=== PATIENT | male | born 1965 | race African-American/Black ===

== ENCOUNTER 2018-01-01 22:00 | Inpatient (IN) | payer OTHER ==
[~2018-01-01] VITALS: Ht 188 cm; Wt 77.7 kg
[2018-01-01 22:33] LABS: BASOPHILS % (AUTO) 0.6 % (0.0-2.0); EOSINOPHILS % (AUTO) 1.4 % (0.0-3.0); HEMATOCRIT 34.4 % (42.0-52.0); HEMOGLOBIN 11.3 G/DL (14.2-18.0); LYMPHOCYTES % (AUTO) 18.7 % (20.0-45.0); MEAN CORPUSCULAR VOLUME 84 FL (80-99); MONOCYTES % (AUTO) 5.2 % (1.0-10.0); NEUTROPHILS % (AUTO) 74.1 % (45.0-75.0); PLATELET COUNT 289 K/UL (150-450); RED BLOOD COUNT 4.08 M/UL (4.70-6.10); RED CELL DISTRIBUTION WIDTH 14.9 % (11.6-14.8); WHITE BLOOD COUNT 5.6 K/UL (4.8-10.8)
[2018-01-01 22:46] LABS: ANION GAP 10 mmol/L (5-15); BLOOD UREA NITROGEN 31 mg/dL (7-18); CALCIUM 9.8 MG/DL (8.5-10.1); CARBON DIOXIDE 22 MMOL/L (21-32); CHLORIDE 98 MMOL/L (98-107); CREATININE 1.8 MG/DL (0.55-1.30); POTASSIUM 4.5 MMOL/L (3.5-5.1); SODIUM 130 MMOL/L (136-145)
[2018-01-01 22:56] LABS: ALANINE AMINOTRANSFERASE 20 U/L (12-78); ALBUMIN 3.3 G/DL (3.4-5.0); ALBUMIN/GLOBULIN RATIO 0.5 (1.0-2.7); ALKALINE PHOSPHATASE 133 U/L (46-116); ASPARTATE AMINO TRANSFERASE 13 U/L (15-37); BILIRUBIN,TOTAL 0.1 MG/DL (0.2-1.0); CREATINE KINASE 71 U/L (26-308)
[2018-01-02 00:10] LABS: APPEARANCE,URINE CLEAR; BILIRUBIN, URINE NEGATIVE (NEGATIVE); GLUCOSE, URINE (UA) NEGATIVE (NEGATIVE); KETONES,URINE NEGATIVE (NEGATIVE); LEUKOCYTE ESTERASE ,URINE 1+ (NEGATIVE); NITRITE,URINE NEGATIVE (NEGATIVE); PH,URINE 6 (4.5-8.0); PROTEIN,URINE 1+ (NEGATIVE); UROBILINOGEN,URINE NORMAL MG/DL (0.0-1.0)
[2018-01-02 00:32] LABS: COLOR,URINE YELLOW
--- NOTE | 2018-01-02 01:01 | Emergency Room Report ---
History of Present Illness General Chief Complaint: Syncope Source: Patient, Medical Record, EMS Present Illness HPI This is an unfortunate 52-year-old male with a history of schizophrenia. Also history of nontraumatic subdural hematoma. He is bed bound in a fdc. At baseline he is able to communicate. He presents with chief complaint of syncope. He told nursing staff that he had to use the restroom. This did him up and he had a syncopal episode. Per EMS his blood pressure was low. Patient has no trauma. Complaining of feeling weak. Denies any pain. No nausea no vomiting. No fever or chills. No other complaint. No chest pain. Allergies: Coded Allergies: No Known Allergies (Unverified , 01/01/18) Patient History Past Medical History: see triage record, old chart reviewed, HTN, CVA/TIA Past Surgical History: other Pertinent Family History: none Social History: Denies: smoking Immunizations: UTD Reviewed Nursing Documentation: PMH: Agreed; PSxH: Agreed Nursing Documentation-PMH Past Medical History: No History, Except For Hx Hypertension: Yes Hx Gastrointestinal Problems: Yes - G-tube History Of Psychiatric Problem: Yes - schizophrenia Hx Neurological Problems: Yes - subdural hemorrhage,anxiety, Hx Seizures: Yes Review of Systems Constitutional: Reports: weakness Eye: Denies: eye pain, blurred vision ENT: Denies: ear pain, nose congestion, throat swelling Respiratory: Denies: cough, shortness of breath Cardiovascular: Denies: chest pain, palpitations Gastrointestinal: Denies: abdominal pain, diarrhea, nausea, vomiting Musculoskeletal: Denies: back pain, joint pain Skin: Denies: rash Neurological: Denies: headache, numbness Endocrine: Denies: increased thirst, increased urine Hematologic/Lymphatic: Denies: easy bruising All Other Systems: negative except mentioned in HPI Physical Exam Vital Signs Date Time Temp Pulse Resp B/P (MAP) Pulse Ox O2 Delivery O2 Flow Rate FiO2 01/01/18 21:51 98.7 92 20 80/50 96 Room Air 98.8 vitals with hypotension Sp02 EP Interpretation: reviewed, normal General Appearance: well appearing, alert, thin, Chronically Ill Head: normocephalic, atraumatic Eyes: bilateral eye PERRL, bilateral eye EOMI ENT: hearing grossly normal, normal pharynx, dry mucus membranes Neck: full range of motion, supple, no meningismus Respiratory: chest non-tender, lungs clear, normal breath sounds Cardiovascular #1: regular rate, rhythm, no murmur Gastrointestinal: normal bowel sounds, non tender, no mass, no organomegaly, no bruit, non-distended Musculoskeletal: back normal, normal range of motion Neurologic: alert Psychiatric: mood/affect normal Skin: warm/dry Medical Decision Making Diagnostic Impression: Primary Impression: Syncope Qualified Codes: R55 - Syncope and collapse Additional Impressions: Dehydration CLAUDIA (acute kidney injury) Anemia Qualified Codes: D64.9 - Anemia, unspecified ER Course Patient presents with syncope secondary to hypotension. He show evidence of acute kidney injury. Creatinine is 1.8. Recent labs from a week ago still creatinine of 1.16. Blood pressure improved after IV fluid. No evidence of infection. Troponin negative. We'll admit for IV hydration and further monitoring. I will contact Dr. Thompson for admission. Lab Results Impression last with elevated creatinine EKG Diagnostic Results Rate: normal Rhythm: NSR ST Segments: no acute changes Rhythm Strip Diag. Results Rhythm Strip Time: 01:00 EP Interpretation: yes Chest X-Ray Diagnostic Results Chest X-Ray Diagnostic Results : Chest X-Ray Ordered: Yes # of Views/Limited/Complete: 1 View Indication: Chest Pain EP Interpretation: Yes Interpretation: no consolidation, no effusion, no pneumothorax, no acute cardiopulmonary disease Impression: No acute disease Electronically Signed by: Hira Solano MD Last Vital Signs Date Time Temp Pulse Resp B/P (MAP) Pulse Ox O2 Delivery O2 Flow Rate FiO2 18 21:51 98.7 92 20 80/50 96 Room Air 98.8 Status: improved Disposition: ADMITTED INPATIENT Condition: Serious Referrals: Melissa Thompson MD (PCP) HIRA SOLANO M.D. Jan 02, 2018 01:01
[2018-01-02] MEDS ORDERED: MILK OF MA2400 MG/10 ORAL (02:01)
[2018-01-02] MEDS ORDERED: METOPROLOL TART50 M1 ORAL (02:01)
[2018-01-02] MEDS ORDERED: RISPERDAL2 MG ORAL (02:01)
[2018-01-02] MEDS ORDERED: DEPAKENE250 MG/5 M PO (02:01)
[2018-01-02] MEDS ORDERED: DULCOLAX10 MG RC (02:01)
[2018-01-02] MEDS ORDERED: ACETAMINOPHEN325 M1 ORAL (02:01)
[2018-01-02] MEDS ORDERED: FAMOTIDINE10 MG ORAL (02:01)
[2018-01-02] MEDS ORDERED: VITAMIN C500 M1 ORAL (02:01)
[2018-01-02] MEDS ORDERED: TRILEPTAL600 MG PO (02:01)
[2018-01-02] MEDS ORDERED: ATIVAN1 MG ORAL (02:01)
[2018-01-02] MEDS ORDERED: DOCUSATE SODIU100 MG ORAL (02:01)
[2018-01-02] MEDS ORDERED: LISINOPRIL10 MG ORAL (02:01)
[2018-01-02] MEDS ORDERED: VITAMIN D1000 UNI1 ORAL (02:01)
[2018-01-02] MEDS ORDERED: NORVASC10 MG ORAL (02:01)
[2018-01-02] MEDS ORDERED: BENADRYL25 MG ORAL (02:01)
[2018-01-02] MEDS ORDERED: FLEET ENEMA133 ML RECTAL (02:01)
[2018-01-02 02:22] VITALS: BP 101/64
[2018-01-02 04:00] VITALS: BP 106/75
[2018-01-02 08:00] VITALS: BP 117/60
[2018-01-02] MEDS: Pantoprazole Inj IVP SCH (09:27)
[2018-01-02 10:11] LABS: BASOPHILS % (AUTO) 0.3 % (0.0-2.0); EOSINOPHILS % (AUTO) 1.9 % (0.0-3.0); HEMATOCRIT 30.4 % (42.0-52.0); HEMOGLOBIN 9.6 G/DL (14.2-18.0); LYMPHOCYTES % (AUTO) 23.9 % (20.0-45.0); MEAN CORPUSCULAR VOLUME 86 FL (80-99); NEUTROPHILS % (AUTO) 62.9 % (45.0-75.0); PLATELET COUNT 246 K/UL (150-450); RED BLOOD COUNT 3.55 M/UL (4.70-6.10); WHITE BLOOD COUNT 3.6 K/UL (4.8-10.8)
[2018-01-02 10:43] LABS: ALANINE AMINOTRANSFERASE 14 U/L (12-78); ALBUMIN 2.6 G/DL (3.4-5.0); ALBUMIN/GLOBULIN RATIO 0.5 (1.0-2.7); ALKALINE PHOSPHATASE 106 U/L (46-116); ANION GAP 3 mmol/L (5-15); ASPARTATE AMINO TRANSFERASE 12 U/L (15-37); BILIRUBIN,TOTAL 0.2 MG/DL (0.2-1.0); BLOOD UREA NITROGEN 23 mg/dL (7-18); CALCIUM 9.2 MG/DL (8.5-10.1); CARBON DIOXIDE 25 MMOL/L (21-32); CHLORIDE 105 MMOL/L (98-107); CREATININE 0.9 MG/DL (0.55-1.30); POTASSIUM 4.2 MMOL/L (3.5-5.1); SODIUM 133 MMOL/L (136-145)
--- NOTE | 2018-01-02 11:36 | Diagnostic Imaging Report ---
Indication: Dyspnea Comparison: None A single view chest radiograph was obtained. Findings: There is a plate like atelectasis at the lung bases. A small left pleural effusion is not excluded. Lung volumes are low bilaterally. Heart size is normal. IMPRESSION: Basilar atelectasis. Tiny left pleural effusion is possible
[2018-01-02 12:00] VITALS: BP 90/59
--- NOTE | 2018-01-02 12:30 | Consultation ---
History of Present Illness General Date patient seen: Jan 02, 2018 Chief Complaint: Syncope Present Illness HPI 52-year-old male with a history of schizophrenia, subdural hematoma, bed bound in a fci brought in by paramedics with CC of syncope. Per EMS his blood pressure was low. Patient has no trauma. Complaining of feeling weak. Denies any pain. No nausea no vomiting. No fever or chills. No other complaint. No chest pain. Allergies: Coded Allergies: No Known Allergies (Unverified , 01/01/18) Medication History Scheduled Amlodipine Besylate (Norvasc), 10 MG ORAL DAILY, (Reported) Ascorbic Acid* (Vitamin C*), 500 MG ORAL DAILY, (Reported) Cholecalciferol (Vitamin D3)* (Vitamin D*), 5,000 UNITS ORAL DAILY, (Reported) Docusate Sodium* (Docusate Sodium*), 100 MG ORAL DAILY, (Reported) Famotidine (Famotidine), 20 MG ORAL EVERY 12 HOURS, (Reported) Lisinopril* (Lisinopril*), 10 MG ORAL DAILY, (Reported) Metoprolol Tartrate* (Metoprolol Tartrate*), 50 MG ORAL EVERY 12 HOURS, ( Reported) Oxcarbazepine* (Trileptal*), 600 MG PO EVERY 12 HOURS, (Reported) Risperidone* (Risperdal*), 2 MG ORAL BID, (Reported) Valproate Sodium (Depakene), 250 MG PO THREE TIMES A DAY, (Reported) Scheduled PRN Acetaminophen* (Acetaminophen 325MG Tablet*), 650 MG ORAL Q4H PRN for Fever/ Headache/Mild Pain, (Reported) Bisacodyl (Dulcolax), 10 MG RC DAILY PRN for Constipation, (Reported) Diphenhydramine Hcl* (Benadryl*), 50 MG ORAL Q6H PRN for Itching, (Reported) Lorazepam* (Ativan*), 1 MG ORAL EVERY 12 HOURS PRN for For Anxiety, (Reported) Magnesium Hydroxide* (Milk Of Magnesia*), 30 ML ORAL DAILY PRN for Constipation, (Reported) Na Phos,M-B/Na Phos,Di-Ba* (Fleet Enema*), 133 ML RECTAL DAILY PRN for Constipation, (Reported) Patient History Healthcare decision maker Resuscitation status Full Code Advanced Directive on File Past Medical/Surgical History Past Medical/Surgical History: (1) Schizo-affective schizophrenia (2) Subdural hematoma Review of Systems All Other Systems: negative except mentioned in HPI Physical Exam General Appearance: WD/WN, no apparent distress Lines, tubes and drains: peripheral HEENT: normocephalic, atraumatic Neck: non-tender, normal alignment Respiratory/Chest: chest wall non-tender, lungs clear Breasts: no masses Cardiovascular/Chest: normal peripheral pulses Abdomen: normal bowel sounds Genitourinary/Rectal: normal genital exam Last 24 Hour Vital Signs Date Time Temp Pulse Resp B/P (MAP) Pulse Ox O2 Delivery O2 Flow Rate FiO2 01/02/18 09:00 Nasal Cannula 2.0 01/02/18 08:00 97.5 71 18 117/60 (79) 98 97.5 01/02/18 08:00 75 01/02/18 04:32 75 01/02/18 04:00 97.5 89 20 106/75 (85) 92 97.5 01/02/18 03:59 98.8 20 101/64 96 Nasal Cannula 2.0 98.8 01/02/18 03:19 Nasal Cannula 2.0 01/02/18 02:22 98.8 20 101/64 96 Room Air 98.8 01/01/18 21:51 98.7 92 20 80/50 96 Room Air 98.8 Intake and Output 01/01/18 01/02/18 19:00 07:00 Intake Total 0 ml Output Total 750 ml Balance -750 ml Intake Oral 0 ml Output Urine Total 750 ml Laboratory Tests Test 01/01/18 22:15 01/01/18 23:35 01/02/18 09:35 White Blood Count 5.6 K/UL (4.8-10.8) 3.6 K/UL (4.8-10.8) L Red Blood Count 4.08 M/UL (4.70-6.10) L 3.55 M/UL (4.70-6.10) L Hemoglobin 11.3 G/DL (14.2-18.0) L 9.6 G/DL (14.2-18.0) L Hematocrit 34.4 % (42.0-52.0) L 30.4 % (42.0-52.0) L Mean Corpuscular Volume 84 FL (80-99) 86 FL (80-99) Mean Corpuscular Hemoglobin 27.7 PG (27.0-31.0) 27.1 PG (27.0-31.0) Mean Corpuscular Hemoglobin Concent 32.8 G/DL (32.0-36.0) 31.7 G/DL (32.0-36.0) L Red Cell Distribution Width 14.9 % (11.6-14.8) H 15.0 % (11.6-14.8) H Platelet Count 289 K/UL (150-450) 246 K/UL (150-450) Mean Platelet Volume 6.5 FL (6.5-10.1) 6.4 FL (6.5-10.1) L Neutrophils (%) (Auto) 74.1 % (45.0-75.0) 62.9 % (45.0-75.0) Lymphocytes (%) (Auto) 18.7 % (20.0-45.0) L 23.9 % (20.0-45.0) Monocytes (%) (Auto) 5.2 % (1.0-10.0) 11.0 % (1.0-10.0) H Eosinophils (%) (Auto) 1.4 % (0.0-3.0) 1.9 % (0.0-3.0) Basophils (%) (Auto) 0.6 % (0.0-2.0) 0.3 % (0.0-2.0) Sodium Level 130 MMOL/L (136-145) L 133 MMOL/L (136-145) L Potassium Level 4.5 MMOL/L (3.5-5.1) 4.2 MMOL/L (3.5-5.1) Chloride Level 98 MMOL/L (98-107) 105 MMOL/L (98-107) Carbon Dioxide Level 22 MMOL/L (21-32) 25 MMOL/L (21-32) Anion Gap 10 mmol/L (5-15) 3 mmol/L (5-15) L Blood Urea Nitrogen 31 mg/dL (7-18) H 23 mg/dL (7-18) H Creatinine 1.8 MG/DL (0.55-1.30) H 0.9 MG/DL (0.55-1.30) Estimat Glomerular Filtration Rate 39.8 mL/min (>60) > 60 mL/min (>60) Glucose Level 131 MG/DL (74-106) H 96 MG/DL (74-106) Calcium Level 9.8 MG/DL (8.5-10.1) 9.2 MG/DL (8.5-10.1) Total Bilirubin 0.1 MG/DL (0.2-1.0) L 0.2 MG/DL (0.2-1.0) Aspartate Amino Transf (AST/SGOT) 13 U/L (15-37) L 12 U/L (15-37) L Alanine Aminotransferase (ALT/SGPT) 20 U/L (12-78) 14 U/L (12-78) Alkaline Phosphatase 133 U/L (46-116) H 106 U/L (46-116) Total Creatine Kinase 71 U/L (26-308) Creatine Kinase MB 1.0 NG/ML (0.0-3.6) Creatine Kinase MB Relative Index 1.4 Troponin I 0.016 ng/mL (0.000-0.056) Total Protein 9.8 G/DL (6.4-8.2) H 7.9 G/DL (6.4-8.2) Albumin 3.3 G/DL (3.4-5.0) L 2.6 G/DL (3.4-5.0) L Globulin 6.5 g/dL 5.3 g/dL Albumin/Globulin Ratio 0.5 (1.0-2.7) L 0.5 (1.0-2.7) L Urine Color Yellow Urine Appearance Clear Urine pH 6 (4.5-8.0) Urine Specific Cades 1.015 (1.005-1.035) Urine Protein 1+ (NEGATIVE) H Urine Glucose (UA) Negative (NEGATIVE) Urine Ketones Negative (NEGATIVE) Urine Occult Blood 1+ (NEGATIVE) H Urine Nitrite Negative (NEGATIVE) Urine Bilirubin Negative (NEGATIVE) Urine Urobilinogen Normal MG/DL (0.0-1.0) Urine Leukocyte Esterase 1+ (NEGATIVE) H Urine RBC 2-4 /HPF (0 - 0) H Urine WBC 2-4 /HPF (0 - 0) Urine Squamous Epithelial Cells Few /LPF (NONE/OCC) Urine Calcium Oxalate Crystals Few /LPF (NONE) Urine Bacteria Few /HPF (NONE) Urine Hyaline Casts 5-10 /LPF (NONE) H Vitamin B6 Level Pending Thyroid Stimulating Hormone (TSH) 0.990 uiU/mL (0.358-3.740) Height (Feet): 6 Height (Inches): 2.00 Weight (Pounds): 184 Medications Current Medications Medications (Trade) Dose Ordered Sig/Martir Route PRN Reason Start Time Stop Time Status Last Admin Dose Admin Ondansetron HCl (Zofran) 4 mg Q6H PRN IVP Nausea & Vomiting 01/02/18 06:15 02/01/18 06:14 Pantoprazole (Protonix) 40 mg DAILY IVP 01/02/18 09:00 02/01/18 08:59 01/02/18 09:27 Sodium Chloride 1,000 ml @ 100 mls/hr Q10H IV 01/02/18 07:00 02/01/18 06:59 01/02/18 06:42 Assessment/Plan Problem List: (1) Pleural effusion ICD Codes: J90 - Pleural effusion, not elsewhere classified SNOMED: 11227488 (2) Schizo-affective schizophrenia ICD Codes: F25.0 - Schizoaffective disorder, bipolar type SNOMED: 529436582 (3) Syncope ICD Codes: R55 - Syncope and collapse SNOMED: 544373576 Qualifiers: Qualified Codes: R55 - Syncope and collapse Assessment/Plan pleural effusion is very small no further work up swallow study neuro evaluation respiratory treatment titrate fio2 to sat of 92% dvt prophylaxis Caroline Abreu MD Jan 02, 2018 12:29
--- NOTE | 2018-01-02 12:34 | Diagnostic Imaging Report ---
Indication: Dyspnea Comparison: 01/01/2018 A single view chest radiograph was obtained. Findings: Basal atelectasis demonstrated. There may be a tiny left pleural effusion. Lung volumes are low. Heart size is stable. IMPRESSION: No change compared to the prior exam
[2018-01-02 16:10] VITALS: BP 103/64
--- NOTE | 2018-01-02 16:49 | Diagnostic Imaging Report ---
Indication:Abdominal pain Technique: Grayscale and duplex Doppler imaging of the abdomen performed. Comparison: None Findings: The liver, demonstrated part of the pancreas, gallbladder, aorta and IVC, both kidneys, spleen appear unremarkable. There is no biliary ductal dilatation identified. Doppler evaluation of the main portal vein shows patency. There is no ascites. No hydronephrosis seen. CBD is 5.3 mm. There is a 1.5 cm cyst in the lower pole the right kidney. Impression: No acute findings. Right renal cyst
[2018-01-02 20:00] VITALS: BP 107/62
[2018-01-02 20:16] LABS: APPEARANCE,URINE CLEAR; BILIRUBIN, URINE NEGATIVE (NEGATIVE); COLOR,URINE PALE YELLOW; GLUCOSE, URINE (UA) NEGATIVE (NEGATIVE); KETONES,URINE NEGATIVE (NEGATIVE); LEUKOCYTE ESTERASE ,URINE NEGATIVE (NEGATIVE); NITRITE,URINE NEGATIVE (NEGATIVE); PH,URINE 6 (4.5-8.0); PROTEIN,URINE NEGATIVE (NEGATIVE); UROBILINOGEN,URINE NORMAL MG/DL (0.0-1.0)
[2018-01-03] VITALS: BP 106/59
[2018-01-03] MEDS ORDERED: LOVENOX10 M2 SUBQ (03:40)
[2018-01-03 04:00] VITALS: BP 106/76
--- NOTE | 2018-01-03 04:00 | History and Physical Report ---
DATE OF ADMISSION: 01/02/2018 REASON FOR ADMISSION: This is the first admission to [facility] of this 52-year-old patient because of sudden loss of consciousness. HISTORY OF PRESENT ILLNESS: The patient is a resident of an extended care facility. He has been in relatively stable condition. Over the last several months, he is known to have several chronic medical syndrome, but has been stable on his current medication. On the day of admission, while walking from the shower, he suddenly collapsed and became pulseless and blood pressure less. He was resuscitated. Code Enforcement Inspector was called and the patient came to [facility] ER where he was found to be dehydrated, hypotensive, in acute renal failure and the patient was admitted. PAST MEDICAL HISTORY: He denied any surgical antecedent. Medically, he is on benazepril 20 mg daily, aspirin 81 mg daily, atorvastatin 10 mg daily, folic acid IU daily. He is on Zyprexa 5 mg daily and Ativan 1 mg q.12 h. p.r.n. FAMILY HISTORY: Noncontributory. SOCIAL HISTORY: He is single. He was born in [place], been on SSI for many years. Prior to the appearance of total disability, he was never employed. Habits, the patient smoked 1 pack a day for the last 30 years. He denied drinking and denied use of illicit drugs. REVIEW OF SYSTEMS: The patient unable to give any information regarding his state of health because of lethargy. PHYSICAL EXAMINATION: VITAL SIGNS: Blood pressure is 107/67, his pulse is 81, respirations are 18, and temperature 98.4 degrees. HEENT: Eyes were normal. Pupils were round, equal, and reactive to light. Sclerae was white. Conjunctiva was pink. Extraocular movements were normal. Temporal arteries were palpable bilaterally. There was no bilateral temporal wasting. Visual cooper to confrontation were normal and neglect sign could not be assessed. ENT, mucous membranes were not dehydrated. Auditory canals were clear and tympanic membranes could not be visualized. Nasal cavity was not congested. Nasal septum was intact. Soft palate was free of ulcerations. Pharynx was clear from exudate or tonsillar hypertrophy. Uvula sarah to phonation. Tongue was moist, midline, and normally papillated. NECK: Supple. There was no goiter. No mass. No lymphadenopathy. There was no rigidity. No bruits. Carotid upstroke was 2+. LUNGS: Clear. HEART: PMI was fifth left intercostal space in midclavicular line. There was normal S1 and normal S2. There was no murmur. No arrhythmia. No S3. No S4. No pericardial rub. ABDOMEN: Soft and nontender without organomegaly. There were no masses palpable. Normal bowel sounds without bruit. There was no guarding. No rebound tenderness. No ascites. No hernia. No CVA tenderness. Liver span was 8 cm, mostly nontender. EXTREMITIES: No cyanosis, no clubbing, and no edema. Extremities were warm. NEUROLOGICAL: Reflexes in biceps, triceps, and brachioradialis were present. Patellar retinaculum were present. Plantar were in flexion. Cranial nerves II through XII were symmetric and equal. Cerebellar function, there was no tremor. No nystagmus. No extrapyramidal rigidity. Sensory exam to pinprick and cotton touch, position, and motor strength could not be assessed because of patient's lethargy. LABORATORY AND DIAGNOSTIC DATA: His hemoglobin is 9.6, hematocrit was 30.4 with MCV of 86, WBC of 3.6, and platelets are 246. His BUN and creatinine is 23 and 0.9 respectively. Sodium is 133, potassium 4.2, chloride 105, CO2 was 25. SGOT and SGPT are normal. Alkaline phosphatase is normal as well. Albumin is 2.6. Total protein is 7.9. His TSH is 0.99. His urinalysis was clean without rbc's or wbc's. His chest x-ray showed left pleural effusion. His are normal. gallbladder dilation. There was no hydronephrosis normal size. IMPRESSION: The patient had left quadrant tenderness. Laboratory tests are normal. Pleural effusion. Pulmonary software sales consultant was called to assist in the management of this case. Repeat laboratory test will be done in the morning. Melissa Thompson M.D. DR: RADHA JOB#: [id number] CC:
[2018-01-03 07:38] LABS: HEMATOCRIT 29.2 % (42.0-52.0); HEMOGLOBIN 9.4 G/DL (14.2-18.0); LYMPHOCYTES % (AUTO) 35.3 % (20.0-45.0); MEAN CORPUSCULAR VOLUME 86 FL (80-99); MONOCYTES % (AUTO) 7.9 % (1.0-10.0); NEUTROPHILS % (AUTO) 53.9 % (45.0-75.0); PLATELET COUNT 254 K/UL (150-450); RED CELL DISTRIBUTION WIDTH 14.3 % (11.6-14.8); WHITE BLOOD COUNT 3.8 K/UL (4.8-10.8)
[2018-01-03 08:00] VITALS: BP 128/70
[2018-01-03] MEDS: Pantoprazole Inj IVP SCH (08:18)
[2018-01-03] MEDS: Xarelto 15mg tab ORAL SCH ×2 (08:22→18:14)
[2018-01-03 08:59] LABS: % IRON SATURATION 32 % (15-50); IRON 44 ug/dL (50-175); TOTAL IRON BINDING CAPACITY 139 ug/dL (250-450)
[2018-01-03 09:01] LABS: ALANINE AMINOTRANSFERASE 16 U/L (12-78); ALBUMIN 2.6 G/DL (3.4-5.0); ALBUMIN/GLOBULIN RATIO 0.5 (1.0-2.7); ALKALINE PHOSPHATASE 108 U/L (46-116); ANION GAP 7 mmol/L (5-15); ASPARTATE AMINO TRANSFERASE 13 U/L (15-37); BILIRUBIN,TOTAL 0.3 MG/DL (0.2-1.0); BLOOD UREA NITROGEN 15 mg/dL (7-18); CALCIUM 9.2 MG/DL (8.5-10.1); CARBON DIOXIDE 24 MMOL/L (21-32); CHLORIDE 102 MMOL/L (98-107); CREATININE 0.8 MG/DL (0.55-1.30); POTASSIUM 3.9 MMOL/L (3.5-5.1); SODIUM 133 MMOL/L (136-145)
[2018-01-03 09:14] LABS: FERRITIN 593 NG/ML (8-388)
[2018-01-03 12:00] VITALS: BP 118/47
--- NOTE | 2018-01-03 12:10 | Pulmonology Progress Note ---
Assessment/Plan Problems: (1) Pleural effusion (2) Schizo-affective schizophrenia (3) Syncope (4) Seizure disorder Assessment/Plan resume seizure meds monitor heart rate and BP check echo Subjective ROS Limited/Unobtainable: No Constitutional: Reports: no symptoms HEENT: Repors: no symptoms Respiratory: Reports: no symptoms Allergies: Coded Allergies: No Known Allergies (Unverified , 01/01/18) Objective Last 24 Hour Vital Signs Date Time Temp Pulse Resp B/P (MAP) Pulse Ox O2 Delivery O2 Flow Rate FiO2 01/03/18 09:00 Nasal Cannula 2.0 01/03/18 08:00 99.0 73 18 128/70 (89) 97 99.0 01/03/18 04:00 76 01/03/18 04:00 99.0 68 18 106/76 (86) 97 99.0 01/03/18 00:00 98.4 83 18 106/59 (75) 94 98.4 01/03/18 00:00 86 01/02/18 21:00 Nasal Cannula 2.0 01/02/18 20:00 82 01/02/18 20:00 98.4 81 18 107/62 (77) 96 98.4 01/02/18 16:10 98.0 78 20 103/64 (77) 99 98.0 01/02/18 16:00 84 Intake and Output 01/02/18 01/03/18 19:00 07:00 Intake Total 100 ml 1166 ml Output Total 700 ml 600 ml Balance -600 ml 566 ml IV Total 100 ml 1166 ml Output Urine Total 700 ml 600 ml # Bowel Movements 3 General Appearance: WD/WN HEENT: normocephalic, atraumatic Respiratory/Chest: chest wall non-tender, lungs clear Cardiovascular: normal peripheral pulses, normal rate Abdomen: normal bowel sounds, soft, non tender Genitourinary: normal external genitalia Extremities: no cyanosis Skin: no rash Neurologic/Psychiatric: 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 pharmacy 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-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 grossly normal Laboratory Tests 01/02/18 18:45: Urine Color Pale yellow, Urine Appearance Clear, Urine pH 6, Urine Specific [employer] 1.015, Urine Protein Negative, Urine Glucose (UA) Negative, Urine Ketones Negative, Urine Occult Blood Negative, Urine Nitrite Negative, Urine Bilirubin Negative, Urine Urobilinogen Normal, Urine Leukocyte Esterase Negative , Urine RBC 0, Urine WBC 0-2, Urine Squamous Epithelial Cells None, Urine Bacteria Occasional 01/02/18 23:35: Urine Opiates Screen Negative, Urine Barbiturates Screen Negative, Phencyclidine (PCP) Screen Negative, Urine Amphetamines Screen Negative, Urine Benzodiazepines Screen Negative, Urine Cocaine Screen Negative, Urine Marijuana (THC) Screen Negative 01/03/18 06:10: White Blood Count 3.8L, Red Blood Count 3.40L, Hemoglobin 9.4L, Hematocrit 29.2L , Mean Corpuscular Volume 86, Mean Corpuscular Hemoglobin 27.8, Mean Corpuscular Hemoglobin Concent 32.4, Red Cell Distribution Width 14.3, Platelet Count 254, Mean Platelet Volume 6.3L, Neutrophils (%) (Auto) 53.9, Lymphocytes ( %) (Auto) 35.3, Monocytes (%) (Auto) 7.9, Eosinophils (%) (Auto) 2.0, Basophils (%) (Auto) 1.0, Sodium Level 133L, Potassium Level 3.9, Chloride Level 102, Carbon Dioxide Level 24, Anion Gap 7, Blood Urea Nitrogen 15, Creatinine 0.8, Estimat Glomerular Filtration Rate > 60, Glucose Level 68L, Calcium Level 9.2, Iron Level 44L, Total Iron Binding Capacity 139L, Percent Iron Saturation 32, Unsaturated Iron Binding 95L, Ferritin 593H, Total Bilirubin 0.3, Aspartate Amino Transf (AST/SGOT) 13L, Alanine Aminotransferase (ALT/SGPT) 16, Alkaline Phosphatase 108, Pro-B-Type Natriuretic Peptide 84, Total Protein 7.9, Albumin 2.6L, Globulin 5.3, Albumin/Globulin Ratio 0.5L, Hepatitis A IgM Antibody [ Pending], Hepatitis B Surface Antigen [Pending], Hepatitis B Core IgM Antibody [ Pending], Hepatitis C Antibody [Pending], HIV (1&2) Antibody Rapid Negative 01/03/18 09:55: Fibrinogen 445H Current Medications Medications (Trade) Dose Ordered Sig/Martir Route PRN Reason Start Time Stop Time Status Last Admin Dose Admin Ondansetron HCl (Zofran) 4 mg Q6H PRN IVP Nausea & Vomiting 01/02/18 06:15 02/01/18 06:14 Pantoprazole (Protonix) 40 mg DAILY IVP 01/02/18 09:00 02/01/18 08:59 01/03/18 08:18 Rivaroxaban (Xarelto) 15 mg BID ORAL 01/03/18 09:00 02/02/18 08:59 01/03/18 08:22 Sodium Chloride 1,000 ml @ 100 mls/hr Q10H IV 01/02/18 07:00 02/01/18 06:59 01/03/18 03:20 Caroline Abreu MD Jan 03, 2018 12:10
--- NOTE | 2018-01-03 13:46 | Diagnostic Imaging Report ---
APPROVED REPORT CPT Code: 53038 Present Symptoms Comments: R/O DVT RIGHT LEG: Venous imaging reveals a patent deep venous system. There is no evidence of thrombus within the femoral, popliteal or tibial segments. The greater saphenous vein is also within normal limits. Doppler indicates normal spontaneous flow within these segments. LEFT LEG: Venous imaging reveals acute thrombus in the common femoral to popliteal veins. Imaging also reveals patency of the calf veins. Greater saphenous vein also within normal limits. NINI Avila was notified of abnormal results at 09:00 hours.
--- NOTE | 2018-01-03 14:24 | Cardiology Report ---
APPROVED REPORT EXAM: Two-dimensional and M-mode echocardiogram with Doppler and color Doppler. INDICATION Left ventricular function M-Mode DIMENSIONS IVSd1.9 (0.7-1.1cm)Left Atrium (MM)3.0 (1.6-4.0cm) LVDd5.5 (3.5-5.6cm)Aortic Root4.5 (2.0-3.7cm) PWd1.2 (0.7-1.1cm)Aortic Cusp Exc.1.6 (1.5-2.0cm) LVDs3.7 (2.5-4.0cm) PWs1.1 cm Technically difficult study due to poor acoustical windows. Normal left ventricular chamber size, systolic function and wall motion. Left ventricular ejection fraction estimated to be 55-60 %. No evidence of left ventricular hypertrophy. No evidence of pericardial or pleural effusion. All other cardiac chamber sizes are within normal limits. Focal aortic valve sclerosis with adequate cusp excursion. Thickened mitral valve leaflets with normal excursion. Mild mitral annulus and aortic root calcification. Pulmonic valve not well visualized. Normal tricuspid valve structure. IVC is normal in size and collapsible with respiration. A color flow and spectral Doppler study was performed and revealed: No aortic regurgitation. Trace mitral regurgitation. Mitral inflow suggestive of mild diastolic dyfunction Mild tricuspid regurgitation. Tricuspid systolic velocities suggests peak right ventricular systolic pressure of 22mmHg
[2018-01-03 16:00] VITALS: BP 108/65
[2018-01-03] MEDS: LORazepam Inj 2mg/ml 1ml IV PRN (16:44)
--- NOTE | 2018-01-03 18:45 | Consultation ---
DATE OF CONSULTATION: 01/03/2018 HEMATOLOGY/ONCOLOGY CONSULTATION CONSULTING PHYSICIAN: Moy Rodarte M.D. REQUESTING PHYSICIAN: Melissa Thompson M.D. REASON FOR CONSULTATION: Evaluation of leukopenia and DVT. IDENTIFYING DATA: Dear Dr. Thompson and Dr. Abreu, The patient is a pleasant 52-year-old male. This is the first time he has been admitted here. Usually, he gets admitted to [facility]. He has past medical history, which is significant for history of DVT and other medical issues that are chronic, suddenly collapsed, became pulseless on the day of admission. Blood pressure decreased. Paramedics were called, presented to [facility], found to be dehydrated. This is his first admission here and has been seen by Dr. Abreu. Hematology Service consulted given DVT as well as leukopenia. PAST MEDICAL HISTORY: As noted above, schizophrenia, subdural hematoma, senior living bound, complaining of syncope. PAST SURGICAL HISTORY: None reported. SOCIAL HISTORY: 01:32 SSI. Smoker for the past 30 years. No illicit drug use. No alcohol. FAMILY HISTORY: Noncontributory. REVIEW OF SYSTEMS: CONSTITUTIONAL: No fevers, chills, or night sweats. SKIN: No rashes, bumps, or itching. HEENT: No headache, hearing or visual changes. BREASTS: No lumps, pain, or discharge. PULMONARY: No cough, sputum, or shortness of breath. GASTROINTESTINAL: No nausea, vomiting, or diarrhea. GENITOURINARY: No dysuria, frequency, or urgency. MUSCULOSKELETAL: No muscle, joint swelling, or trauma. PHYSICAL EXAMINATION: VITAL SIGNS: Reviewed. GENERAL: No acute distress. LUNGS: Decreased breath sounds. CARDIOVASCULAR: Regular rate. No S3 or S4. ABDOMEN: Soft, nontender, and nondistended. EXTREMITIES: 1+ edema. LABORATORY AND DIAGNOSTIC DATA: WBC 3.8, hemoglobin 9.4, hematocrit of 29, platelet count 284,000. Chemistry reviewed. Total bilirubin 0.2. Toxicology reviewed, otherwise, negative at this time. Imaging reviewed. Orders reviewed. Obtain anemia panel. ASSESSMENT AND RECOMMENDATION: 1. Leukopenia. Hepatitis panel and HIV pending. In addition, ultrasound of the abdomen reviewed. No acute findings noted. Common bile duct within normal limits. 2. Anemia due to underlying chronic disease. Continue to closely monitor. Anemia workup has been ordered. 3. Deep venous thrombosis of left lower extremity. Obtain venous duplex. Continue the patient on Xarelto at this time. 4. Syncope, potentially secondary to decreased p.o. intake. In addition, to be seen for further evaluation by primary team. 5. Upper quadrant abdominal tenderness. 6. Hyperlipidemia. He is on Lipitor. 7. Psychiatric disorder. He is on Zyprexa. I appreciate consultation. Moy Rodarte M.D. DR: MELISSA JOB#: [id number] CC:
[2018-01-03 20:00] VITALS: BP 94/66
[2018-01-03] MEDS: Valproic Acid 250mg/5ml Liquid ORAL SCH (21:31)
[2018-01-04] VITALS: BP 106/67
[2018-01-04 04:00] VITALS: BP 119/77
[2018-01-04] MEDS: LORazepam Inj 2mg/ml 1ml IV PRN ×2 (04:45→17:39)
--- NOTE | 2018-01-04 05:45 | Progress Note ---
DATE: 01/03/2018 NOTE: POOR AUDIO SUBJECTIVE: The patient is awake intermittently and now is somnolent. He is febrile and slightly hypotensive. PHYSICAL EXAMINATION: VITAL SIGNS: Blood pressure 94/66, pulse is 94, respirations 20, and temperature was 99.1. HEENT: Eyes were normal. ENT, mucous membranes were moist and intact. NECK: Supple with no JVD without lymph nodes. LUNGS: Clear. HEART: Normal sounds with regular beats. ABDOMEN: Soft and nontender with normal bowel sounds. EXTREMITIES: Warm without cyanosis, clubbing, or edema. LABORATORY AND DIAGNOSTIC DATA: Hemoglobin 9.4, hematocrit 29.2 with MCV of 86, WBC of 6.8, and platelets are 254. His BUN and creatinine are 15 and 0.8, respectively. His sodium is 133, potassium 3.9, chloride 102, and CO2 is 24. His iron is 44, iron saturation is 32, and ferritin is 593. His liver function tests are relatively stable. His albumin of 2.6 and total protein of 7.9. His 445. His urine for tox screen was negative. hepatitis are all pending . His venous duplex scan was negative in the right leg, but the left leg in the common femoral artery and popliteal vein. The left calf vein are open within normal limit. . ASSESSMENT AND PLAN: mg b.i.d. and he is on normal saline at 100 mL per hour. Hematology benefits consultant was called to assist in the management of this case. The patient in addition has . He can have pureed diet and liquids in nectar consistency. Repeat laboratory test will be done in a.m. Melissa Thompson M.D. DR: ANAYA JOB#: [id number] CC:
[2018-01-04 08:00] VITALS: BP 114/78
[2018-01-04] MEDS: Pantoprazole Inj IVP SCH (09:47)
[2018-01-04] MEDS: Xarelto 15mg tab ORAL SCH ×2 (09:47→17:32)
[2018-01-04] MEDS: Valproic Acid 250mg/5ml Liquid ORAL SCH ×2 (09:47→22:40)
--- NOTE | 2018-01-04 09:52 | General Progress Note ---
Assessment/Plan Status: stable Assessment/Plan 1. Leukopenia. --> Hepatitis panel pending, HIV negative. --> US of the abdomen reviewed. No acute findings noted. Common bile duct within normal limits. 2. Anemia due to underlying chronic disease. --> Continue to closely monitor. --> Anemia workup has been reviewed, will trend daily. --> Hgb goal >7 3. Deep venous thrombosis of left lower extremity. --> Venous duplex: LEFT LEG: Venous imaging reveals acute thrombus in the common femoral to popliteal veins. RIGHT LEG: Venous imaging reveals a patent deep venous system. --> Continue the patient on Xarelto at this time. 4. Syncope, potentially secondary to decreased p.o. intake. In addition, to be seen for further evaluation by primary team. 5. Upper quadrant abdominal tenderness. 6. Hyperlipidemia. He is on Lipitor. 7. Psychiatric disorder. He is on Zyprexa. The time the note was entered does not necessarily correspond to the time the patient was seen. Subjective Date patient seen: Jan 04, 2018 ROS Limited/Unobtainable: Yes Hematologic/Lymphatic: Reports: anemia Allergies: Coded Allergies: No Known Allergies (Unverified , 01/01/18) All Systems: reviewed and negative except above Subjective Pt confused, tried pulling out cath. Elevated HR overnight, currently stable. Objective Last 24 Hour Vital Signs Date Time Temp Pulse Resp B/P (MAP) Pulse Ox O2 Delivery O2 Flow Rate FiO2 01/04/18 04:00 98.5 101 18 119/77 (91) 94 98.5 01/04/18 04:00 92 01/04/18 00:00 99.8 77 20 106/67 (80) 98 99.8 01/04/18 00:00 95 01/03/18 21:00 Nasal Cannula 2.0 01/03/18 20:00 94 01/03/18 20:00 99.1 67 20 94/66 (75) 100 99.1 01/03/18 16:00 98.2 77 20 108/65 (79) 97 98.2 01/03/18 16:00 80 01/03/18 12:00 99.7 56 20 118/47 (70) 97 99.7 01/03/18 12:00 71 Intake and Output 01/03/18 01/04/18 19:00 07:00 Intake Total 100 ml 1185 ml Output Total 2225 ml Balance 100 ml -1040 ml Intake Oral 0 ml IV Total 100 ml 1185 ml Output Urine Total 2225 ml # Bowel Movements 1 Laboratory Tests 01/03/18 09:55: Fibrinogen 445H Height (Feet): 6 Height (Inches): 2.00 Weight (Pounds): 171 General Appearance: no apparent distress, confused EENT: PERRL/EOMI Neck: non-tender, normal alignment Cardiovascular: normal peripheral pulses Respiratory/Chest: normal breath sounds, no respiratory distress Abdomen: normal bowel sounds Moy Rodarte MD Jan 04, 2018 09:52
--- NOTE | 2018-01-04 11:49 | Pulmonology Progress Note ---
Assessment/Plan Problems: (1) Pleural effusion (2) Schizo-affective schizophrenia (3) Syncope (4) Seizure disorder Assessment/Plan on xarelto for dvt hematology f/u resume seizure meds monitor heart rate and BP check echo Subjective ROS Limited/Unobtainable: No Constitutional: Reports: no symptoms HEENT: Repors: no symptoms Respiratory: Reports: no symptoms Allergies: Coded Allergies: No Known Allergies (Unverified , 01/01/18) Objective Last 24 Hour Vital Signs Date Time Temp Pulse Resp B/P (MAP) Pulse Ox O2 Delivery O2 Flow Rate FiO2 01/04/18 09:00 Nasal Cannula 2.0 01/04/18 08:00 104 01/04/18 08:00 98.1 104 19 114/78 (90) 98 98.1 01/04/18 04:00 98.5 101 18 119/77 (91) 94 98.5 01/04/18 04:00 92 01/04/18 00:00 99.8 77 20 106/67 (80) 98 99.8 01/04/18 00:00 95 01/03/18 21:00 Nasal Cannula 2.0 01/03/18 20:00 94 01/03/18 20:00 99.1 67 20 94/66 (75) 100 99.1 01/03/18 16:00 98.2 77 20 108/65 (79) 97 98.2 01/03/18 16:00 80 01/03/18 12:00 99.7 56 20 118/47 (70) 97 99.7 01/03/18 12:00 71 Intake and Output 01/03/18 01/04/18 19:00 07:00 Intake Total 100 ml 1185 ml Output Total 2225 ml Balance 100 ml -1040 ml Intake Oral 0 ml IV Total 100 ml 1185 ml Output Urine Total 2225 ml # Bowel Movements 1 General Appearance: WD/WN HEENT: normocephalic Respiratory/Chest: chest wall non-tender, lungs clear Cardiovascular: normal peripheral pulses, normal rate Abdomen: normal bowel sounds, soft, non tender Genitourinary: normal external genitalia Extremities: no cyanosis Skin: no lesions 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 Complete 01/02/18 01:23 Rectum VRE Culture - Final Enterococcus Faecium - Vre Resulted 01/02/18 01:23 Rectum Pending Resulted Current Medications Medications (Trade) Dose Ordered Sig/Martir Route PRN Reason Start Time Stop Time Status Last Admin Dose Admin Lorazepam (Ativan 2mg/ml 1ml) 1 mg Q4H PRN IV For Seizures 01/03/18 15:45 01/10/18 15:44 01/04/18 04:45 Ondansetron HCl (Zofran) 4 mg Q6H PRN IVP Nausea & Vomiting 01/02/18 06:15 02/01/18 06:14 Oxcarbazepine (Trileptal) 600 mg EVERY 12 HOURS ORAL 01/03/18 21:00 02/02/18 20:59 01/04/18 09:47 Pantoprazole (Protonix) 40 mg DAILY IVP 01/02/18 09:00 02/01/18 08:59 01/04/18 09:47 Risperidone (RisperDAL) 2 mg BID ORAL 01/03/18 18:00 02/02/18 17:59 01/04/18 09:47 Rivaroxaban (Xarelto) 15 mg BID ORAL 01/03/18 09:00 02/02/18 08:59 01/04/18 09:47 Sodium Chloride 1,000 ml @ 100 mls/hr Q10H IV 01/02/18 07:00 02/01/18 06:59 01/03/18 23:11 Valproic Acid (Depakene) 250 mg EVERY 12 HOURS ORAL 01/03/18 21:00 02/02/18 20:59 01/04/18 09:47 Caroline Abreu MD Jan 04, 2018 11:49
[2018-01-04 12:00] VITALS: BP 110/64
[2018-01-04 16:00] VITALS: BP 100/65
[2018-01-04 20:00] VITALS: BP 104/72
[2018-01-05] VITALS: BP 100/64
[2018-01-05] MEDS ORDERED: LORazepam Inj 2mg/ml 1ml IV PRN (01:08)
--- NOTE | 2018-01-05 02:45 | Progress Note ---
DATE: 01/04/2018 NOTE: POOR AUDIO SUBJECTIVE: The patient is afebrile. His tachycardia resolved. He is still borderline hypotensive. PHYSICAL EXAMINATION: VITAL SIGNS: Blood pressure is 100/55, his pulse is 90, respirations were 20, and temperature was 97.8. HEENT: Eyes were normal. ENT, mucous membranes were moist and intact. NECK: Supple with no JVD without lymph nodes. Tracheostomy site is clean. LUNGS: Clear without rhonchi, rales, or wheezing. Secretions are small, thin, and dickens. HEART: Normal sounds with regular beats. There is no S3, S4, or pericardial rub. ABDOMEN: Soft and nontender with normal bowel sounds. EXTREMITIES: Warm without cyanosis, clubbing, or edema. LABORATORY AND DIAGNOSTIC DATA: Hemoglobin is 9.4, hematocrit 29.2 with MCV of 86, WBC of 3.8, and platelets 64,000. His BUN and creatinine are 15 and 0.8, respectively. Sodium is , potassium 3.8, chloride 102, and CO2 is 24. The patient underwent study, in which no pathology was found, and abdominal and pelvic ultrasound was normal. IMPRESSION: 1. pancreatitis was identified. 2. The patient has deep vein thrombosis of left lower extremity. PLAN: popliteal vein. The patient is on 20 mg daily. The patient has syncope, the cause of which is not identified, possible cardiac arrhythmia. . Repeat laboratory tests will be done in the morning. Melissa Thompson M.D. DR: MILDRED JOB#: [id number] CC:
[2018-01-05 04:00] VITALS: BP 121/67
[2018-01-05 08:00] VITALS: BP 120/67
[2018-01-05 09:24] LABS: HEMATOCRIT 31.7 % (42.0-52.0); HEMOGLOBIN 10.2 G/DL (14.2-18.0); MEAN CORPUSCULAR VOLUME 84 FL (80-99); PLATELET COUNT 268 K/UL (150-450); RED BLOOD COUNT 3.76 M/UL (4.70-6.10); RED CELL DISTRIBUTION WIDTH 13.7 % (11.6-14.8); WHITE BLOOD COUNT 2.9 K/UL (4.8-10.8)
[2018-01-05 10:08] LABS: ANION GAP 7 mmol/L (5-15); BLOOD UREA NITROGEN 10 mg/dL (7-18); CALCIUM 9.2 MG/DL (8.5-10.1); CARBON DIOXIDE 26 MMOL/L (21-32); CHLORIDE 103 MMOL/L (98-107); CREATININE 0.8 MG/DL (0.55-1.30); POTASSIUM 3.4 MMOL/L (3.5-5.1); SODIUM 136 MMOL/L (136-145)
[2018-01-05] MEDS: Xarelto 15mg tab ORAL SCH ×2 (10:38→18:04)
[2018-01-05] MEDS: Valproic Acid 250mg/5ml Liquid ORAL SCH ×2 (10:44→21:35)
[2018-01-05] MEDS: Pantoprazole Inj IVP SCH (10:48)
--- NOTE | 2018-01-05 11:35 | Diagnostic Imaging Report ---
Indication: Dyspnea Comparison: 01/03/2018 A single view chest radiograph was obtained. Findings: Reticular densities are noted at the lung bases consistent with atelectasis. There is blunting of the left costophrenic angle. Heart size is normal. IMPRESSION: Basilar atelectasis. Small left pleural effusion
--- NOTE | 2018-01-05 11:48 | General Progress Note ---
Assessment/Plan Status: unchanged Assessment/Plan 1. Leukopenia. --> Hepatitis panel and HIV are both negative. --> US of the abdomen reviewed. No acute findings noted. Common bile duct within normal limits. 2. Anemia due to underlying chronic disease. --> Continue to closely monitor. --> Anemia workup has been reviewed, will trend daily. --> Hgb goal >7 3. Deep venous thrombosis of left lower extremity. --> Venous duplex: LEFT LEG: Venous imaging reveals acute thrombus in the common femoral to popliteal veins. RIGHT LEG: Venous imaging reveals a patent deep venous system. --> Continue the patient on Xarelto at this time. 4. Syncope, potentially secondary to decreased p.o. intake. In addition, to be seen for further evaluation by primary team. 5. Upper quadrant abdominal tenderness. 6. Hyperlipidemia. He is on Lipitor. 7. Psychiatric disorder. He is on Zyprexa. The time the note was entered does not necessarily correspond to the time the patient was seen. Subjective Date patient seen: Jan 05, 2018 Hematologic/Lymphatic: Reports: anemia Allergies: Coded Allergies: No Known Allergies (Unverified , 01/01/18) All Systems: reviewed and negative except above Subjective No acute events. Tachy resolved. CXR shows basilar atelectasis and small left pleural effusion Objective Last 24 Hour Vital Signs Date Time Temp Pulse Resp B/P (MAP) Pulse Ox O2 Delivery O2 Flow Rate FiO2 01/05/18 10:10 Nasal Cannula 2.0 01/05/18 08:00 98.9 78 18 120/67 (84) 99 98.9 01/05/18 04:00 97.2 74 20 121/67 (85) 98 97.2 74 01/05/18 00:00 97.4 68 20 100/64 (76) 97 97.4 01/05/18 00:00 Nasal Cannula 2.0 01/05/18 00:00 73 01/04/18 21:00 Nasal Cannula 2.0 01/04/18 20:09 Nasal Cannula 4.0 36 01/04/18 20:09 97 Nasal Cannula 4.0 36 01/04/18 20:00 97.7 77 20 104/72 (83) 98 97.7 01/04/18 16:00 90 01/04/18 16:00 97.8 90 20 100/65 (77) 98 97.8 01/04/18 12:00 98.2 81 21 110/64 (79) 99 98.2 01/04/18 12:00 88 Intake and Output 01/04/18 01/05/18 19:00 07:00 Intake Total 700 ml 300 ml Output Total 500 ml 1000 ml Balance 200 ml -700 ml Intake Oral 200 ml IV Total 500 ml 300 ml Output Urine Total 500 ml 1000 ml Laboratory Tests 01/05/18 08:35: White Blood Count 2.9L, Red Blood Count 3.76L, Hemoglobin 10.2L, Hematocrit 31.7L, Mean Corpuscular Volume 84, Mean Corpuscular Hemoglobin 27.1, Mean Corpuscular Hemoglobin Concent 32.2, Red Cell Distribution Width 13.7, Platelet Count 268, Mean Platelet Volume 6.3L, Neutrophils (%) (Auto) , Lymphocytes (%) ( Auto) , Monocytes (%) (Auto) , Eosinophils (%) (Auto) , Basophils (%) (Auto) , Differential Total Cells Counted 100, Neutrophils % (Manual) 58, Lymphocytes % ( Manual) 33, Monocytes % (Manual) 6, Eosinophils % (Manual) 2, Basophils % ( Manual) 1, Band Neutrophils 0, Platelet Estimate Adequate, Platelet Morphology Normal, Red Blood Cell Morphology Normal, Sodium Level 136, Potassium Level 3.4L , Chloride Level 103, Carbon Dioxide Level 26, Anion Gap 7, Blood Urea Nitrogen 10, Creatinine 0.8, Estimat Glomerular Filtration Rate > 60, Glucose Level 100, Calcium Level 9.2, Pro-B-Type Natriuretic Peptide 68 Height (Feet): 6 Height (Inches): 2.00 Weight (Pounds): 171 General Appearance: no apparent distress, confused EENT: PERRL/EOMI Neck: normal alignment Cardiovascular: normal peripheral pulses Respiratory/Chest: no respiratory distress Abdomen: soft Moy Rodarte MD Jan 05, 2018 11:48
[2018-01-05 12:00] VITALS: BP 121/66
--- NOTE | 2018-01-05 12:54 | Pulmonology Progress Note ---
Assessment/Plan Problems: (1) Pleural effusion (2) Schizo-affective schizophrenia (3) Syncope (4) Seizure disorder Assessment/Plan on xarelto for dvt hematology f/u resume seizure meds monitor heart rate and BP check echo Subjective ROS Limited/Unobtainable: No Constitutional: Reports: no symptoms HEENT: Repors: no symptoms Respiratory: Reports: no symptoms Allergies: Coded Allergies: No Known Allergies (Unverified , 01/01/18) Objective Last 24 Hour Vital Signs Date Time Temp Pulse Resp B/P (MAP) Pulse Ox O2 Delivery O2 Flow Rate FiO2 01/05/18 10:10 Nasal Cannula 2.0 01/05/18 08:00 98.9 78 18 120/67 (84) 99 98.9 01/05/18 04:00 97.2 74 20 121/67 (85) 98 97.2 74 01/05/18 00:00 97.4 68 20 100/64 (76) 97 97.4 01/05/18 00:00 Nasal Cannula 2.0 01/05/18 00:00 73 01/04/18 21:00 Nasal Cannula 2.0 01/04/18 20:09 Nasal Cannula 4.0 36 01/04/18 20:09 97 Nasal Cannula 4.0 36 01/04/18 20:00 97.7 77 20 104/72 (83) 98 97.7 01/04/18 16:00 90 01/04/18 16:00 97.8 90 20 100/65 (77) 98 97.8 Intake and Output 01/04/18 01/05/18 19:00 07:00 Intake Total 700 ml 300 ml Output Total 500 ml 1000 ml Balance 200 ml -700 ml Intake Oral 200 ml IV Total 500 ml 300 ml Output Urine Total 500 ml 1000 ml General Appearance: WD/WN HEENT: normocephalic Respiratory/Chest: chest wall non-tender, lungs clear Cardiovascular: normal rate, regular rhythm Abdomen: normal bowel sounds, soft, non tender Extremities: no cyanosis 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, 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 Laboratory Tests 01/05/18 08:35: White Blood Count 2.9L, Red Blood Count 3.76L, Hemoglobin 10.2L, Hematocrit 31.7L, Mean Corpuscular Volume 84, Mean Corpuscular Hemoglobin 27.1, Mean Corpuscular Hemoglobin Concent 32.2, Red Cell Distribution Width 13.7, Platelet Count 268, Mean Platelet Volume 6.3L, Neutrophils (%) (Auto) , Lymphocytes (%) ( Auto) , Monocytes (%) (Auto) , Eosinophils (%) (Auto) , Basophils (%) (Auto) , Differential Total Cells Counted 100, Neutrophils % (Manual) 58, Lymphocytes % ( Manual) 33, Monocytes % (Manual) 6, Eosinophils % (Manual) 2, Basophils % ( Manual) 1, Band Neutrophils 0, Platelet Estimate Adequate, Platelet Morphology Normal, Red Blood Cell Morphology Normal, Sodium Level 136, Potassium Level 3.4L , Chloride Level 103, Carbon Dioxide Level 26, Anion Gap 7, Blood Urea Nitrogen 10, Creatinine 0.8, Estimat Glomerular Filtration Rate > 60, Glucose Level 100, Calcium Level 9.2, Pro-B-Type Natriuretic Peptide 68 Current Medications Medications (Trade) Dose Ordered Sig/Martir Route PRN Reason Start Time Stop Time Status Last Admin Dose Admin Lorazepam (Ativan 2mg/ml 1ml) 1 mg Q4H PRN IV For Seizures 01/05/18 01:08 01/10/18 01:07 Ondansetron HCl (Zofran) 4 mg Q6H PRN IVP Nausea & Vomiting 01/05/18 01:09 02/01/18 01:08 Oxcarbazepine (Trileptal) 600 mg EVERY 12 HOURS ORAL 01/05/18 09:00 02/02/18 20:59 01/05/18 10:37 Pantoprazole (Protonix) 40 mg DAILY IVP 01/05/18 09:00 02/01/18 08:59 01/05/18 10:48 Risperidone (RisperDAL) 2 mg BID ORAL 01/05/18 09:00 02/02/18 17:59 01/05/18 10:38 Rivaroxaban (Xarelto) 15 mg BID ORAL 01/05/18 09:00 02/02/18 08:59 01/05/18 10:38 Sodium Chloride 1,000 ml @ 100 mls/hr Q10H IV 01/05/18 02:00 02/01/18 01:59 01/05/18 03:09 Valproic Acid (Depakene) 250 mg EVERY 12 HOURS ORAL 01/05/18 09:00 02/02/18 20:59 01/05/18 10:44 Caroline Abreu MD Jan 05, 2018 12:54
[2018-01-05 16:00] VITALS: BP 114/77
[2018-01-05 20:00] VITALS: BP 108/82
[2018-01-06] VITALS: BP 112/77
[2018-01-06 04:00] VITALS: BP 123/85
--- NOTE | 2018-01-06 05:31 | Progress Note ---
DATE: 01/05/2018 SUBJECTIVE: The patient is afebrile, hemodynamically stable, and more awake and more responsive than previously. PHYSICAL EXAMINATION: VITAL SIGNS: Blood pressure 112/77, his pulse is 69, respirations are 16, and temperature 97.2. HEENT: Eyes were normal. ENT, mucous membranes were moist and intact. NECK: Supple with no JVD without lymph nodes. LUNGS: Clear. HEART: Normal sounds with regular beats. There is no tachycardia at rest. ABDOMEN: Soft and nontender with normal bowel sounds. EXTREMITIES: Warm without cyanosis, clubbing, or edema. LABORATORY DATA: Hemoglobin is 10.7, hematocrit 31.7, MCV of 84, WBC of 2.9, and platelets 268,000. His BUN and creatinine are 10 and 0.8 respectively. His sodium is 136, potassium 3.4, chloride 103, and CO2 26. His BNP was 84, iron was 44, and iron saturation was 32. Chest x-ray revealed bibasilar atelectasis and a small left pleural effusion. ASSESSMENT AND PLAN: The patient has been seen by the diagnostic sales specialist who did not modify any of the current management. The patient's discharge can be considered. Continue with the current management in the extended care facility. The patient's discharge will be done in the morning. Melissa Thompson M.D. DR: MILDRED JOB#: [id number] CC:
[2018-01-06 08:00] VITALS: BP 123/84
[2018-01-06] MEDS: Pantoprazole Inj IVP SCH ×2 (09:00→09:11)
[2018-01-06] MEDS: Valproic Acid 250mg/5ml Liquid ORAL SCH ×2 (09:11→21:00)
[2018-01-06] MEDS: Xarelto 15mg tab ORAL SCH ×2 (09:11→17:44)
[2018-01-06 11:53] VITALS: BP 123/62
[2018-01-06] MEDS ORDERED: XARELTO15 MG ORAL (11:56)
--- NOTE | 2018-01-06 11:58 | Pulmonology Progress Note ---
Assessment/Plan Problems: (1) Pleural effusion (2) Schizo-affective schizophrenia (3) Syncope (4) Seizure disorder Assessment/Plan on xarelto for dvt hematology f/u resume seizure meds monitor heart rate and BP dc planning Subjective ROS Limited/Unobtainable: Yes Allergies: Coded Allergies: No Known Allergies (Unverified , 01/01/18) Objective Last 24 Hour Vital Signs Date Time Temp Pulse Resp B/P (MAP) Pulse Ox O2 Delivery O2 Flow Rate FiO2 01/06/18 11:53 97.1 83 21 123/62 (82) 98 97.1 01/06/18 08:20 Nasal Cannula 2.0 01/06/18 08:00 97.7 77 19 123/84 (97) 100 97.7 01/06/18 04:00 97.2 72 16 123/85 (98) 100 97.2 01/06/18 00:00 97.2 69 16 112/77 (89) 97 97.2 01/05/18 21:00 Nasal Cannula 2.0 01/05/18 20:40 Nasal Cannula 2.0 28 01/05/18 20:40 98 Nasal Cannula 2.0 28 01/05/18 20:00 97.5 87 17 108/82 (91) 98 97.5 01/05/18 16:00 98.5 83 20 114/77 (89) 100 98.5 01/05/18 12:00 97.7 77 21 121/66 (84) 100 97.7 Intake and Output 01/05/18 01/06/18 19:00 07:00 Intake Total 750 ml Output Total 1450 ml 600 ml Balance -700 ml -600 ml Intake Oral 750 ml Output Urine Total 1450 ml 600 ml General Appearance: WD/WN HEENT: normocephalic, atraumatic Respiratory/Chest: chest wall non-tender, lungs clear Cardiovascular: normal peripheral pulses, regular rhythm Abdomen: normal bowel sounds, soft, non tender Extremities: no cyanosis Skin: no lesions 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, 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 Current Medications Medications (Trade) Dose Ordered Sig/Martir Route PRN Reason Start Time Stop Time Status Last Admin Dose Admin Lorazepam (Ativan 2mg/ml 1ml) 1 mg Q4H PRN IV For Seizures 01/05/18 01:08 01/10/18 01:07 01/05/18 18:05 Ondansetron HCl (Zofran) 4 mg Q6H PRN IVP Nausea & Vomiting 01/05/18 01:09 02/01/18 01:08 Oxcarbazepine (Trileptal) 600 mg EVERY 12 HOURS ORAL 01/05/18 09:00 02/02/18 20:59 01/06/18 09:12 Pantoprazole (Protonix) 40 mg DAILY IVP 01/05/18 09:00 02/01/18 08:59 01/05/18 10:48 Quetiapine Fumarate (SEROquel) 25 mg Q4H PRN ORAL Agitation 01/05/18 21:00 02/04/18 20:59 01/06/18 09:11 Risperidone (RisperDAL) 2 mg BID ORAL 01/05/18 09:00 02/02/18 17:59 01/06/18 09:11 Rivaroxaban (Xarelto) 15 mg BID ORAL 01/05/18 09:00 02/02/18 08:59 01/06/18 09:11 Sodium Chloride 1,000 ml @ 100 mls/hr Q10H IV 01/05/18 02:00 02/01/18 01:59 01/05/18 03:09 Valproic Acid (Depakene) 250 mg EVERY 12 HOURS ORAL 01/05/18 09:00 02/02/18 20:59 01/06/18 09:11 Caroline Abreu MD Jan 06, 2018 11:58
--- NOTE | 2018-01-06 13:11 | General Progress Note ---
Assessment/Plan Status: stable Assessment/Plan 1. Leukopenia. --> Hepatitis panel and HIV are both negative. --> US of the abdomen reviewed. No acute findings noted. Common bile duct within normal limits. 2. Anemia due to underlying chronic disease. --> Continue to closely monitor. --> Anemia workup has been reviewed, will trend daily. --> Hgb goal >7 3. Deep venous thrombosis of left lower extremity. --> Venous duplex: LEFT LEG: Venous imaging reveals acute thrombus in the common femoral to popliteal veins. RIGHT LEG: Venous imaging reveals a patent deep venous system. --> Continue the patient on Xarelto at this time. 4. Syncope, potentially secondary to decreased p.o. intake. In addition, to be seen for further evaluation by primary team. 5. Upper quadrant abdominal tenderness. 6. Hyperlipidemia. He is on Lipitor. 7. Psychiatric disorder. He is on Zyprexa. The time the note was entered does not necessarily correspond to the time the patient was seen. Subjective Date patient seen: Jan 06, 2018 ROS Limited/Unobtainable: Yes Hematologic/Lymphatic: Reports: anemia Allergies: Coded Allergies: No Known Allergies (Unverified , 01/01/18) All Systems: reviewed and negative except above Subjective No acute events. Pt removed IV overnight, refusing reinsertion. Objective Last 24 Hour Vital Signs Date Time Temp Pulse Resp B/P (MAP) Pulse Ox O2 Delivery O2 Flow Rate FiO2 01/06/18 11:53 97.1 83 21 123/62 (82) 98 97.1 01/06/18 08:20 Nasal Cannula 2.0 01/06/18 08:00 97.7 77 19 123/84 (97) 100 97.7 01/06/18 04:00 97.2 72 16 123/85 (98) 100 97.2 01/06/18 00:00 97.2 69 16 112/77 (89) 97 97.2 01/05/18 21:00 Nasal Cannula 2.0 01/05/18 20:40 Nasal Cannula 2.0 28 01/05/18 20:40 98 Nasal Cannula 2.0 28 01/05/18 20:00 97.5 87 17 108/82 (91) 98 97.5 01/05/18 16:00 98.5 83 20 114/77 (89) 100 98.5 Intake and Output 01/05/18 01/06/18 18:59 06:59 Intake Total 750 ml Output Total 1450 ml 600 ml Balance -700 ml -600 ml Intake Oral 750 ml Output Urine Total 1450 ml 600 ml Height (Feet): 6 Height (Inches): 2.00 Weight (Pounds): 171 General Appearance: no apparent distress EENT: PERRL/EOMI Neck: non-tender, normal alignment Cardiovascular: normal peripheral pulses Respiratory/Chest: normal breath sounds Abdomen: non tender Moy Rodarte MD Jan 06, 2018 13:11
[2018-01-06] MEDS ORDERED: D5NS 1000ml IV ONE (14:43)
[2018-01-06 16:00] VITALS: BP 129/83
[2018-01-06] MEDS ORDERED: QUETIAPINE FUMA25 MG ORAL (18:39)
[2018-01-06] MEDS ORDERED: Tubing IV Secondary IV ONE (20:59)
--- NOTE | 2018-01-06 23:28 | Consultation ---
History of Present Illness General Date patient seen: Jan 05, 2018 Chief Complaint: Syncope Present Illness HPI 52-year-old male with a history of schizophrenia, nontraumatic subdural hematoma and bed bound in a [facility]. the pt is confused and agitated unable to provide hx coming out of bed and diff to manage Allergies: Coded Allergies: No Known Allergies (Unverified , 01/01/18) Medication History Scheduled Amlodipine Besylate (Norvasc), 10 MG ORAL DAILY, (Reported) Ascorbic Acid* (Vitamin C*), 500 MG ORAL DAILY, (Reported) Cholecalciferol (Vitamin D3)* (Vitamin D*), 5,000 UNITS ORAL DAILY, (Reported) Docusate Sodium* (Docusate Sodium*), 100 MG ORAL DAILY, (Reported) Enoxaparin* (Lovenox*), 80 MG SUBQ EVERY 12 HOURS, (Reported) Famotidine (Famotidine), 20 MG ORAL EVERY 12 HOURS, (Reported) Lisinopril* (Lisinopril*), 10 MG ORAL DAILY, (Reported) Metoprolol Tartrate* (Metoprolol Tartrate*), 50 MG ORAL EVERY 12 HOURS, ( Reported) Oxcarbazepine* (Trileptal*), 600 MG PO EVERY 12 HOURS, (Reported) Quetiapine Fumarate* (Seroquel*), 25 MG ORAL DAILY, (Reported) Risperidone* (Risperdal*), 2 MG ORAL BID, (Reported) Rivaroxaban (Xarelto), 15 MG ORAL BID Valproate Sodium (Depakene), 250 MG PO THREE TIMES A DAY, (Reported) Scheduled PRN Acetaminophen* (Acetaminophen 325MG Tablet*), 650 MG ORAL Q4H PRN for Fever/ Headache/Mild Pain, (Reported) Bisacodyl (Dulcolax), 10 MG RC DAILY PRN for Constipation, (Reported) Diphenhydramine Hcl* (Benadryl*), 50 MG ORAL Q6H PRN for Itching, (Reported) Lorazepam* (Ativan*), 1 MG ORAL EVERY 12 HOURS PRN for For Anxiety, (Reported) Magnesium Hydroxide* (Milk Of Magnesia*), 30 ML ORAL DAILY PRN for Constipation, (Reported) Na Phos,M-B/Na Phos,Di-Ba* (Fleet Enema*), 133 ML RECTAL DAILY PRN for Constipation, (Reported) Patient History Limited by: medical condition History Provided By: Patient, Medical Record, PMD Healthcare decision maker Resuscitation status Full Code Advanced Directive on File Review of Systems Psychiatric: Reports: prior hx, anxiety, depressed feelings, emotional problems Physical Exam General Appearance: no apparent distress, alert, confused, agitated Last 24 Hour Vital Signs Date Time Temp Pulse Resp B/P (MAP) Pulse Ox O2 Delivery O2 Flow Rate FiO2 01/06/18 16:00 98.1 89 20 129/83 (98) 98 98.1 01/06/18 11:53 97.1 83 21 123/62 (82) 98 97.1 01/06/18 08:20 Nasal Cannula 2.0 01/06/18 08:00 97.7 77 19 123/84 (97) 100 97.7 01/06/18 04:00 97.2 72 16 123/85 (98) 100 97.2 01/06/18 00:00 97.2 69 16 112/77 (89) 97 97.2 Intake and Output 01/05/18 01/06/18 19:00 07:00 Intake Total 750 ml Output Total 1450 ml 600 ml Balance -700 ml -600 ml Intake Oral 750 ml Output Urine Total 1450 ml 600 ml Height (Feet): 6 Height (Inches): 2.00 Weight (Pounds): 171 Assessment/Plan Assessment/Plan schizophrenia encephalopathy agitation Gonzales Link MD Jan 06, 2018 23:28
--- NOTE | 2018-01-06 23:29 | General Progress Note ---
Assessment/Plan Status: stable Assessment/Plan schizophrenia encephalopathy agitation seroquel haldol ativan Subjective Date patient seen: Jan 06, 2018 Neurologic/Psychiatric: Reports: anxiety, depressed, emotional problems Allergies: Coded Allergies: No Known Allergies (Unverified , 01/01/18) Objective Last 24 Hour Vital Signs Date Time Temp Pulse Resp B/P (MAP) Pulse Ox O2 Delivery O2 Flow Rate FiO2 01/06/18 16:00 98.1 89 20 129/83 (98) 98 98.1 01/06/18 11:53 97.1 83 21 123/62 (82) 98 97.1 01/06/18 08:20 Nasal Cannula 2.0 01/06/18 08:00 97.7 77 19 123/84 (97) 100 97.7 01/06/18 04:00 97.2 72 16 123/85 (98) 100 97.2 01/06/18 00:00 97.2 69 16 112/77 (89) 97 97.2 Intake and Output 01/05/18 01/06/18 19:00 07:00 Intake Total 750 ml Output Total 1450 ml 600 ml Balance -700 ml -600 ml Intake Oral 750 ml Output Urine Total 1450 ml 600 ml Height (Feet): 6 Height (Inches): 2.00 Weight (Pounds): 171 General Appearance: alert, confused, severe distress, agitated, combative Gonzales Dent MD Jan 06, 2018 23:29
--- NOTE | 2018-01-07 03:30 | Discharge Summary ---
DATE OF ADMISSION: 01/02/2018 DATE OF DISCHARGE: 01/06/2018 "NOTE: POOR AUDIO QUALITY" This is one of several admissions to [facility] of this 52-year-old patient because of loss of consciousness. HISTORY OF PRESENT ILLNESS: Details of the event and circumstances that led the patient to be admitted to this medical unit can be found in the H and P. In brief, the patient is a resident of an extended care facility where he has been in stable condition over the last several months. He is known to have several chronic medical syndrome, but has been stable on current medication. On the day of admission, after getting out of the shower, he lost consciousness and blood pressure. He was resuscitated in the facility. Paramedics was called and the patient was transferred to [facility] ER. In the ER, the patient was found to be hypotensive and urosepsis with leukocytosis. He was transferred to the [facility] unit and was admitted. HOSPITAL COURSE: Upon admission, the patient underwent biological, clinical, and imaging study. Clinical assessment revealed the patient was hypotensive, febrile, with leukocytosis. He received volume replacement with normal saline. His initial H and H were normal, however, his WBC 5.6. The urinalysis revealed no wbcs. His toxicology studies were negative. and the patient was admitted. hyponatremic and hypotensive. The patient's vital signs were stable. blood pressure was normal and heart rate remained normal. He had imaging studies that include chest x-ray and pulmonary business continuity consultant was called to assist in the management of this case. Over the next several days, he received antibiotics and fluids. His chronic syndrome include , chronic psychosis, seizure disorder, and anxiety disorder. On the third day of admission, he became stable. His IV fluids have been stopped. His antibiotics have been stopped. He will be discharged to the [facility] where he will be seen in the next 24 hours after discharge. Melissa Thompson M.D. DR: BRITTANY JOB#: [id number] CC:
--- NOTE | 2018-01-08 12:13 | Cardiology Report ---
APPROVED REPORT EKG Measurement Heart [id number] ID [id number] Normal sinus rhythm Possible Left atrial enlargement Nonspecific T wave abnormality Abnormal ECG
--- NOTE | 2018-01-09 10:11 | Discharge Summary ---
Discharge Summary Hospital Course Date of Admission Jan 02, 2018 at 00:44 Date of Discharge Jan 06, 2018 at 21:00 Admitting Diagnosis syncope. EBER Allred is a 52 year old male who was admitted on Jan 02, 2018 at 00:[address] Lois roachmo dr Dent -psych dr Rodarte - [facility] Hospital Course see dr Thompson dc summary FINAL DIAGNOSES syncope dehydration acute kidney injury ( likely due to dehydration), resolved pleural effusion ( small) DVT LLE anemia of chronic disease leukopenia hyperlipidemia schizophrenia encephalopathy agitation seizure disorder Discharge Medications New Medications: Rivaroxaban (Xarelto) 15 Mg Tablet 15 MG ORAL BID for 30 Days, TAB Continued Medications: Acetaminophen* (Acetaminophen 325MG Tablet*) 325 Mg Tablet 650 MG ORAL Q4H PRN for Fever/Headache/Mild Pain, TAB (This prescription has been renewed) Amlodipine Besylate (Norvasc) 10 Mg Tablet 10 MG ORAL DAILY, TAB (This prescription has been renewed) Bisacodyl (Dulcolax) 10 Mg Supp.rect 10 MG RC DAILY PRN for Constipation, SUPP (This prescription has been renewed) Diphenhydramine Hcl* (Benadryl*) 25 Mg Capsule 50 MG ORAL Q6H PRN for Itching, CAP (This prescription has been renewed) Famotidine (Famotidine) 10 Mg Tablet 20 MG ORAL EVERY 12 HOURS, #60 TAB 0 Refills (This prescription has been renewed ) Lisinopril* (Lisinopril*) 10 Mg Tablet 10 MG ORAL DAILY, TAB (This prescription has been renewed) Metoprolol Tartrate* (Metoprolol Tartrate*) 50 Mg Tablet 50 MG ORAL EVERY 12 HOURS, TAB (This prescription has been renewed) Oxcarbazepine* (Trileptal*) 600 Mg Tablet 600 MG PO EVERY 12 HOURS, TAB (This prescription has been renewed) Quetiapine Fumarate* (Seroquel*) 25 Mg Tablet 25 MG ORAL DAILY, TAB (This prescription has been renewed) Risperidone* (Risperdal*) 2 Mg Tablet 2 MG ORAL BID, #30 TAB 0 Refills (This prescription has been renewed) Valproate Sodium (Depakene) 250 Mg/5 Ml Solution 250 MG PO THREE TIMES A DAY (This prescription has been renewed) Discharge Condition Upon Discharge: stable Discharge Disposition Patient was discharged to SNF/Subacute Facility(03) Discharge Instructions Discharge Instructions Special Instructions I have been assigned to complete a D/C Summary on this account. I was not involved in the patient management Nunu oJse NP Jan 09, 2018 10:11
== END 2018-01-06 21:00 | DRG 422 ==
LOC: EDBD 22:00 → EMR 22:10 → 2E 01-02 00:44 → EDBEDREQ 01-02 01:19 → 2E 01-04 18:49 → 4W 01-05 00:30
DX: E86.0 Dehydration (principal); G93.40 Encephalopathy, unspecified; I82.402 Acute embolism and thrombosis of unspecified deep veins of left lower extremity; N17.9 Acute kidney failure, unspecified; F20.9 Schizophrenia, unspecified; D63.8 Anemia in other chronic diseases classified elsewhere; R55 Syncope and collapse; E78.5 Hyperlipidemia, unspecified; G40.909 Epilepsy, unspecified, not intractable, without status epilepticus; R45.1 Restlessness and agitation; R10.10 Upper abdominal pain, unspecified; I69.20 Unspecified sequelae of other nontraumatic intracranial hemorrhage; F17.200 Nicotine dependence, unspecified, uncomplicated
CPT/HCPCS: 36415; 71045; 76700; 80048; 80053; 80307; 81001; 81003; 82550; 82553; 82728; 83540; 83550; 83880; 84207; 84443; 84484; 85007; 85025; 85384; 86703; 86705; 86709; 86803; 87081; 87340; 93005; 93306; 93970; 94760; 99285; G0378; J8499